=== PATIENT | male | born 1975 | race Two or more races ===

== ENCOUNTER 2019-12-18 12:45 | Emergency (ER) | payer BC, OTHER ==
[~2019-12-18] VITALS: Ht 162.6 cm; Wt 59.0 kg
[2019-12-18 13:35] LABS: Basophils # (auto) 0.1 10 ^3/uL (0-0.2); Basophils % (auto) 1.1 % (0.0-2.0); Eosinophils # (auto) 0.1 10 ^3/uL (0-0.8); Eosinophils % (auto) 1.1 % (0.0-7.0); Hematocrit 40.9 % (41.0-53.0); Hemoglobin 14.1 g/dL (13.5-17.5); Lymphocytes # (auto) 2.7 10 ^3/uL (0.4-5.4); Lymphocytes % (auto) 42.9 % (10.0-50.0); Mean Corpuscular Hemoglobin 30.5 pg (28.0-32.0); Mean Corpuscular Hgb Conc. 34.4 g/dL (32.0-36.0); Mean Corpuscular Volume 88.6 fL (80.0-100.0); Monocytes # (auto) 0.5 10 ^3/uL (0-1.3); Monocytes % (auto) 8.2 % (0.0-12.0); Neutrophils # (auto) 2.9 10 ^3/uL (1.6-8.6); Neutrophils % (auto) 46.7 % (37.0-80.0); Nucleated Red Blood Cells % 0.2 %; Platelet Count (auto) 311 10^3/uL (140-450); Red Blood Cells 4.62 10^6/uL (4.5-5.90); Red Cell Distribution Width 13.9 % (11.8-14.3); White Blood Cell 6.3 10^3/uL (4.4-10.8)
[2019-12-18 13:58] LABS: Albumin 3.8 g/dL (3.4-5.0); Anion Gap 5 (5-15); Blood Urea Nitrogen 17 mg/dL (7-18); Calcium 9.3 mg/dL (8.5-10.1); Carbon Dioxide 34 mmol/L (21-32); Chloride 100 mmol/L (98-107); Glucose 196 mg/dL (74-106); Magnesium 1.6 mg/dL (1.6-2.6); Potassium 3.3 mmol/L (3.5-5.1); Sodium 139 mmol/L (136-145)
[2019-12-18 14:00] VITALS: BP 126/80
[2019-12-18 14:03] LABS: Alanine Aminotransferase 72 U/L (16-61); Alkaline Phosphatase 76 U/L (45-117); Aspartate Aminotransferase 57 U/L (15-37); BUN/Creatinine Ratio 11.2; Bilirubin, Total 0.3 mg/dL (0.2-1.0); GFR African American 64 mL/min; GFR Non-African American 53 mL/min; Total Protein 7.4 g/dL (6.4-8.2)
[2019-12-18 14:26] LABS: Urine Bacteria NONE SEEN /hpf (None Seen); Urine Blood Negative /uL (Negative); Urine Specific Gravity 1.012 (1.001-1.035); Urine WBC <1 /hpf (0 - 3)
[2019-12-18 14:45] LABS: Alcohol, Urine < 3.0 mg/dL (0-10); Amphetamine Screen, Urine NEGATIVE (NEGATIVE); Barbiturate Scree,Urine NEGATIVE (NEGATIVE); Benzodiazephine Screen, Urine NEGATIVE (NEGATIVE); Cannabinoid Screen, Urine NEGATIVE (NEGATIVE); Cocaine Screen, Urine NEGATIVE (NEGATIVE); Opiate Scree,Urine NEGATIVE (NEGATIVE); Phencyclidine Screen, Urine NEGATIVE (NEGATIVE)
== END 2019-12-18 15:40 | disposition home or self-care (01) ==
LOC: EDBD 12:45 → ER 12:45
DX: R55 Syncope and collapse (principal)
CPT/HCPCS: 36415; 70450; 71045; 80053; 80307; 81001; 83735; 84484; 85025; 93005

== ENCOUNTER 2020-01-30 10:53 | Inpatient (IN) | payer BC ==
[~2020-01-30] VITALS: Ht 167.6 cm; Wt 67.7 kg
[2020-01-30] VITALS (25 sets, daily range): BP systolic 110–144; BP diastolic 73–90
[2020-01-30 11:45] LABS: Basophils # (auto) 0.1 10 ^3/uL (0-0.2); Basophils % (auto) 0.9 % (0.0-2.0); Eosinophils # (auto) 0 10 ^3/uL (0-0.8); Hematocrit 41.2 % (41.0-53.0); Lymphocytes # (auto) 1.9 10 ^3/uL (0.4-5.4); Lymphocytes % (auto) 13.1 % (10.0-50.0); Mean Corpuscular Hemoglobin 29.7 pg (28.0-32.0); Mean Corpuscular Hgb Conc. 33.9 g/dL (32.0-36.0); Mean Corpuscular Volume 87.6 fL (80.0-100.0); Monocytes # (auto) 1.1 10 ^3/uL (0-1.3); Monocytes % (auto) 7.9 % (0.0-12.0); Neutrophils # (auto) 11.2 10 ^3/uL (1.6-8.6); Neutrophils % (auto) 78.1 % (37.0-80.0); Platelet Count (auto) 294 10^3/uL (140-450); Red Blood Cells 4.71 10^6/uL (4.5-5.90); Red Cell Distribution Width 14.6 % (11.8-14.3); White Blood Cell 14.4 10^3/uL (4.4-10.8)
[2020-01-30 12:01] LABS: Albumin 3.5 g/dL (3.4-5.0); Calcium 8.4 mg/dL (8.5-10.1); Magnesium 1.7 mg/dL (1.6-2.6); Potassium 3.9 mmol/L (3.5-5.1)
[2020-01-30 12:09] LABS: BUN/Creatinine Ratio 20.4; Bilirubin, Total 0.7 mg/dL (0.2-1.0); CRP High Sensitivity 5.46 mg/dL (< 0.3); Total Protein 7.3 g/dL (6.4-8.2)
[2020-01-30] MEDS ORDERED: HEPARIN 1,000 UNITS/ml 1ML VIAL IV ONE (12:30)
[2020-01-30] MEDS ORDERED: LACTATED RINGER'S 1,000 ML IV ONE (12:30)
[2020-01-30] MEDS ORDERED: MORPHINE SULF INJ 2 MG/ML SYRINGE 1ML IV PRN ×3 (12:30→13:00)
[2020-01-30] MEDS ORDERED: NITROGLYCERIN 0.4 MG SL TAB SL PRN ×3 (12:30→13:00)
[2020-01-30] MEDS ORDERED: TEMAZEPAM 15 MG CAP PO PRN (13:00)
[2020-01-30] MEDS ORDERED: ALUM & MAG HYDROX-SIMETH LIQ(MAALOX) 30 ML PO PRN (13:00)
[2020-01-30] MEDS ORDERED: HYDROcodone-ACET 5/325MG TAB PO PRN (13:00)
[2020-01-30] MEDS ORDERED: ACETAMINOPHEN 325 MG TAB PO PRN (13:00)
[2020-01-30] MEDS ORDERED: ASPirin 325 MG TAB PO ONE (13:00)
[2020-01-30] MEDS ORDERED: MORPHINE SULFATE 4 MG/ML SYR/VIAL IV PRN (13:00)
[2020-01-30] MEDS ORDERED: ATORVASTATIN 20 MG TAB PO ONE (13:00)
[2020-01-30] MEDS ORDERED: ONDANSETRON HCL 4 MG/2 ML VIAL IV PRN ×2 (13:00)
[2020-01-30] MEDS ORDERED: METOPROLOL TARTRATE 25 MG TAB PO ONE ×2 (13:00→13:30)
[2020-01-30] MEDS ORDERED: DOCUSATE SOD 100 MG CAP PO PRN (13:00)
[2020-01-30] MEDS ORDERED: CALCIUM GLUC 4.65meq/50ml D5AE 50 ML IV ONE (13:15)
[2020-01-30] MEDS ORDERED: LISINOPRIL 5 MG TAB PO ONE (13:30)
[2020-01-30] MEDS ORDERED: ASPirin 81 mg TAB PO ONE (13:30)
[2020-01-30] MEDS ORDERED: ETOMIDATE (2MG/ML) 20ML VIAL IV ONE (13:36)
[2020-01-30] MEDS ORDERED: SUCCINYLCHOLINE CHLORIDE 20 MG/ML 10ML VIAL IV ONE (13:36)
[2020-01-30] MEDS ORDERED: NOREPINEPHRINE 8 MG/250ML KIT 0 ML IV ONE (13:54)
[2020-01-30] MEDS ORDERED: FUROSEMIDE 40 MG/4 ML VIAL ONE (13:57)
[2020-01-30] MEDS ORDERED: MIDAZOLAM DRIP 50 mg/50mL 0 ML IV ONE (14:00)
[2020-01-30] MEDS ORDERED: METF-929 PO (14:03)
[2020-01-30] MEDS ORDERED: ATOR10TA52 PO (14:03)
[2020-01-30] MEDS ORDERED: LISI-648 PO (14:03)
[2020-01-30] MEDS ORDERED: MELA3TAB27 PO (14:03)
[2020-01-30] MEDS: MIDAZOLAM DRIP 50 mg/50mL 50 ML IV SCH ×2 (14:06→23:34)
[2020-01-30] MEDS ORDERED: METO25TA93 PO (14:20)
[2020-01-30] MEDS ORDERED: GEMF600T7 PO (14:20)
[2020-01-30] MEDS ORDERED: TORS20TA19 PO (14:20)
[2020-01-30] MEDS ORDERED: OMEG100062 PO (14:20)
[2020-01-30] MEDS ORDERED: TEST1.62 TOP (14:23)
[2020-01-30] MEDS ORDERED: TORS10TA12 PO (14:23)
[2020-01-30] MEDS ORDERED: GLYB5TAB8 PO (14:24)
[2020-01-30] MEDS ORDERED: DILT-14 PO (14:24)
[2020-01-30] MEDS ORDERED: MULT-1018 PO (14:24)
[2020-01-30] MEDS ORDERED: MIDAZOLAM DRIP 50 mg/50mL 50 ML IV ONE (14:36)
[2020-01-30] MEDS ORDERED: PROPOFOL 100 ML IV ONE (14:37)
[2020-01-30] MEDS ORDERED: PROPOFOL 100 ML IV SCH (14:45)
[2020-01-30] MEDS ORDERED: levoFLOXacin 500MG 100 ML IV ONE (15:00)
[2020-01-30] MEDS ORDERED: AMIODARONE 450mg/250ml AE 250 ML IV SCH ×2 (15:00→21:00)
[2020-01-30] MEDS ORDERED: METOPROLOL SUCCINATE XL 50 MG TAB PO ONE (15:45)
[2020-01-30] MEDS ORDERED: LIDOCAINE 2%HCL (LOCAL ANESTH.) INJ 20ML MDV ONE (15:58)
[2020-01-30] MEDS ORDERED: IOHEXOL 350 MG/ML 100ML IJ ONE ×2 (15:58→16:06)
[2020-01-30] MEDS ORDERED: FOLIC ACID 1 MG TAB PO ONE (16:00)
[2020-01-30] MEDS ORDERED: VANCOMYCIN PER PHARMACY 0 MG IV SCH (16:00)
[2020-01-30] MEDS ORDERED: MULTIPLE VITAMINS W/ MINERALS TAB PO ONE (16:00)
[2020-01-30] MEDS ORDERED: THIAMINE HCL 100 MG TAB PO ONE (16:00)
[2020-01-30] MEDS ORDERED: PIPERACILLIN-TAZOB 2.25GM 50 ML IV ONE (16:00)
[2020-01-30] MEDS ORDERED: DEXTROSE (50%) 50ML SYRG IV PRN ×2 (16:00→16:30)
[2020-01-30] MEDS ORDERED: ANGIOMAX 250 MG VIAL IV ONE (16:18)
[2020-01-30] MEDS ORDERED: SODIUM CHL 0.9% 50 ML ONE (16:18)
[2020-01-30] MEDS ORDERED: ACCU-CHEK COMFORT CURVE STRIP VI SCH (17:00)
[2020-01-30] MEDS ORDERED: InsuLIN REG 1unit/0.01ml Soln (100units/ml) SC SCH ×2 (17:00→22:00)
[2020-01-30] MEDS ORDERED: HEPARIN SODIUM (PORCINE) 5000 UNITS/ML 1ML VIAL ONE (17:01)
[2020-01-30] MEDS ORDERED: HEPARIN DRIP/D5W 100UNITS/ML 250 ML IV ONE (17:07)
--- NOTE | 2020-01-30 17:35 | NUR ---
pt transferred directly to APRIL on monitor with RT at bedside IABP in place; lynn catheter remains in place draining to gravity.
--- NOTE | 2020-01-30 17:44 | NUR ---
Amiodarone D/C'd as ordered
--- NOTE | 2020-01-30 17:45 | NUR ---
PT TRANSPORTED TO APRIL BED 263, BY RNS AND RT FERNANDO WITHOUT EVENT OR INCIDENT. ONCE IN ROOM PLACED PT BACK ON VENT V21, ON PREVIOUS ORDERED SETTINGS. VENT CONNECTED TO RED OUTLET AND O2 SOURCE. ALARMS ARE SER AND AUDIBLE. AMBU BAG AND MASK AT BEDSIDE.
--- NOTE | 2020-01-30 17:50 | NUR ---
Dr Mckeon at bedside orders obtained and carried out. Levophed drip increased to 20mcg/min
[2020-01-30 17:56] LABS: INR 0.99 (0.9-1.15); Partial Thromboplastin Time 23.7 sec (23.0-31.2)
--- NOTE | 2020-01-30 18:08 | NUR ---
Levophed drip decreased to 15mcg/min Augmented pressure at >120 as ordered by
--- NOTE | 2020-01-30 18:19 | NUR ---
RECEIVED PT ON VENT V21, VENT CHECK DONE IN PTS ROOM DOOR DUE TO COVID R/O PRECAUTIONS VENT CONNECTED TO RED OUTLET AND O2 SOURCE ALARMS ARE SET AND AUDIBLE. AMBU BAG AND MASK AT BEDSIDE. ASKED SKILLS AUDITOR RNS ABOUT SEDATION BE INCREASED DUE TO RR IN 30S HR IN 100S. PER SKILLS AUDITOR RNS, PT IS SENSITIVE TO SEDATION BP DROPS AND HR DECREASES. WILL CONTINUE TO MONITOR.
--- NOTE | 2020-01-30 18:31 | NUR ---
call from Lizette at [facility] updated on pt's status. required forms and docs faxed to [phone]
[2020-01-30] MEDS ORDERED: VANCOMYCIN 1GM/250ML 250 ML IV ONE (19:00)
[2020-01-30] MEDS ORDERED: NOREPINEPHRINE 8 MG/250ML KIT 250 ML IV SCH (19:00)
--- NOTE | 2020-01-30 19:11 | NUR ---
[id number] 01/30/20 - Faxed to [facility] transfer center at [phone], and [facility] transfer center at [phone] face sheet, Order to transfer to [facility] for Aortic Valve Surgery; cardiogenic shock, labs, meds, imaging. Also contacted [facility] at [phone] patient on "will call" status. Transfer pending review and bed availability. Inform nurse assigned to patient of all information stated above.
--- NOTE | 2020-01-30 19:13 | NUR ---
call from Kat (Transfer RN), Eric Marie updated on pt status.
[2020-01-30] MEDS: ACCU-CHEK COMFORT CURVE STRIP VI SCH ×2 (19:15→23:38)
[2020-01-30] MEDS: InsuLIN REG 1unit/0.01ml Soln (100units/ml) SC SCH ×2 (19:19→23:40)
--- NOTE | 2020-01-30 19:41 | NUR ---
report given to primary RN, Kyle
--- NOTE | 2020-01-30 19:45 | NUR ---
REPORT RECEIVED REPORT FROM VACUUM EVAPORATION OPERATOR RN. PATIENT IS SEDATED WITH DIPRIVAN 50 MCG/KG/MIN, VERSED 15 MG/HR. PATIENT IS ON LEVOPHED 15 MCG/MIN AND HEPARIN 1000 UNITS/HR. PATIENT IS ON LT.GROIN IABP 1:1 . LT.FEMORAL PA CATHETER ( 4 LUMEN)IN PLACE. PER ICU CLAM [facility], HOSPITAL DOESN'T HAVE MANUAL CARDIAC OUT PUT SET UP SUPPLIES. NO CARDIAC OUT PUT DONE.
--- NOTE | 2020-01-30 19:50 | NUR ---
TRANSFER ACKNOWLEDGEMENT TELEPHONIC CONSENT FOR [facility] TRANSFER RECEIVED FROM PATIENT'S GIA LIRIANO. DANIE CHAVEZ WITNESSED.
--- NOTE | 2020-01-30 20:13 | NUR ---
[facility] RECEIVED PHONE CALL FROM FARHAN NICHOLSON RN FROM [facility]. PATIENT'S INFORMATIONS GIVEN.
--- NOTE | 2020-01-30 20:30 | NUR ---
AT BEDSIDE IN FULL PPE DUE TO COVID R/O PRECAUTIONS. FIO2 TITRATED TO 70% BS ARE FINE COURSE SXD VIA ETT FOR SMALL THICK JAQUEZ. RN JOPHY AT BEDSIDE AND COMMUNICATED ON O2 CHANGE.
[2020-01-30 20:34] LABS: Cholesterol 236 mg/dL (< 200); HDL Cholesterol 51 mg/dL (40-59); Triglycerides 495 mg/dL (< 150)
[2020-01-30] MEDS ORDERED: HEPARIN DRIP/D5W 100UNITS/ML 250 ML IV SCH (20:58)
--- NOTE | 2020-01-30 21:00 | NUR ---
HEPARIN DECREASED TO 800 UNITS/HR PATIENT IS RECEIVING HEPARIN 1000UNITS/HR NOW. PER PHARMACIST THAT SHOULD DECREASED TO 800 UNITS/HR. ORDER CARRIED OUT.
--- NOTE | 2020-01-30 21:45 | NUR ---
[facility] ACCEPTING DOCTOR THELMA SAMAYOA AND PATIENT IS GOING TO [phone]. PHONE NUMBER [phone]
--- NOTE | 2020-01-30 21:55 | NUR ---
DR.PONCE PERKINS NOTIFIED PATIENT'S TRANSFER TO [facility].
[2020-01-30] MEDS ORDERED: ATORVASTATIN 20 MG TAB PO SCH (22:00)
[2020-01-30] MEDS ORDERED: METOPROLOL TARTRATE 25 MG TAB PO SCH (22:00)
--- NOTE | 2020-01-30 22:08 | NUR ---
Respiratory note: ROUTINE VENT CHECK DONE AT THIS TIME. FIO2 TITRATED TO 60% RN JOPHY AT BEDSIDE AND COMMUNICATED ON O2 CHANGE. WILL CONTINUE TO MONITOR.
--- NOTE | 2020-01-30 22:30 | NUR ---
CALLED [facility] FOR TRANSPORTATION JONATHON CHAVEZ CALLED [facility] FOR TRANSPORTATION AND INFORMATIONS GIVEN. ETA [phone]
[2020-01-30] MEDS ORDERED: SODIUM BICARBONATE 8.4% INJ 50ML SYRINGE IV ONE (22:40)
[2020-01-30] MEDS ORDERED: EPINEPHrine HCL 1 MG/10 ML SYRG IV ONE (22:40)
[2020-01-30] MEDS ORDERED: CALCIUM CHLOR(10%) 100MG/ML 10ML SYRINGE IV ONE (22:40)
[2020-01-31] VITALS: BP_SYST 128; BP_SYST 141; BP_DIAS 82; BP_DIAS 85
[2020-01-31] MEDS ORDERED: PIPERACILLIN-TAZOB 3.375GM 100 ML IV SCH
--- NOTE | 2020-01-31 00:30 | NUR ---
TRANSPORT TEAM PATIENT IS TAKEN TO [facility] BY [facility]. MCCONNELL YELLOW COLOR CHAIN X 1 AND SILVER COLOR RING X 1 SENT WITH PATIENT. PATIENT'S AWARE ABOUT BELONGINGS. Addendum: 01/31/20 at 0751 by Fadi Tinsley RN RECEIVING FACILITY [facility] [address] [id number]
[2020-01-31] MEDS ORDERED: THIAMINE HCL 100 MG TAB PO SCH (10:00)
[2020-01-31] MEDS ORDERED: DOCUSATE SOD 100 MG CAP PO SCH (10:00)
[2020-01-31] MEDS ORDERED: FOLIC ACID 1 MG TAB PO SCH (10:00)
[2020-01-31] MEDS ORDERED: GEMFIBROZIL 600 MG TAB PO SCH (10:00)
[2020-01-31] MEDS ORDERED: dilTIAZem 120MG ER CAP PO SCH (10:00)
[2020-01-31] MEDS ORDERED: LISINOPRIL 5 MG TAB PO SCH (10:00)
[2020-01-31] MEDS ORDERED: MULTIPLE VITAMINS W/ MINERALS TAB PO SCH (10:00)
[2020-01-31] MEDS ORDERED: ASPirin 81 mg TAB PO SCH (10:00)
[2020-01-31] MEDS ORDERED: METOPROLOL SUCCINATE XL 50 MG TAB PO SCH (10:00)
== END 2020-01-31 07:24 | disposition short-term general hospital (02) | DRG 280 ==
LOC: EDSEX 10:53 → ER 10:53 → EDBD 10:53 → TELE 10:54 → DOU IN ICU 16:47 → ICU CENTRL 01-31 03:22
PROVIDERS: ADMIT Hospitalist; ATTEND Hospitalist
PROC: 0BH17EZ Insertion of Endotracheal Airway into Trachea, Via Natural or Artificial Opening (ICD-10-PCS; principal; 2020-01-30)
PROC: 5A1935Z Respiratory Ventilation, Less than 24 Consecutive Hours (ICD-10-PCS; 2020-01-30)
PROC: 02HV33Z Insertion of Infusion Device into Superior Vena Cava, Percutaneous Approach (ICD-10-PCS; 2020-01-30)
PROC: 4A023N8 Measurement of Cardiac Sampling and Pressure, Bilateral, Percutaneous Approach (ICD-10-PCS; 2020-01-30)
PROC: B2161ZZ Fluoroscopy of Right and Left Heart using Low Osmolar Contrast (ICD-10-PCS; 2020-01-30)
PROC: B2111ZZ Fluoroscopy of Multiple Coronary Arteries using Low Osmolar Contrast (ICD-10-PCS; 2020-01-30)
DX: I21.4 Non-ST elevation (NSTEMI) myocardial infarction (principal); I46.9 Cardiac arrest, cause unspecified; I50.23 Acute on chronic systolic (congestive) heart failure; I13.0 Hypertensive heart and chronic kidney disease with heart failure and stage 1 through stage 4 chronic kidney disease, or unspecified chronic kidney disease; I47.1 Supraventricular tachycardia; N17.9 Acute kidney failure, unspecified; Q23.1 Congenital insufficiency of aortic valve; I25.10 Atherosclerotic heart disease of native coronary artery without angina pectoris; I25.5 Ischemic cardiomyopathy; N18.9 Chronic kidney disease, unspecified; Z79.84 Long term (current) use of oral hypoglycemic drugs; Z85.6 Personal history of leukemia; Z95.2 Presence of prosthetic heart valve; E78.5 Hyperlipidemia, unspecified; E11.65 Type 2 diabetes mellitus with hyperglycemia; E11.22 Type 2 diabetes mellitus with diabetic chronic kidney disease; D72.829 Elevated white blood cell count, unspecified; Z20.828 Contact with and (suspected) exposure to other viral communicable diseases
CPT/HCPCS: 36415; 36600; 71045; 80053; 80061; 82728; 82805; 82962; 83036; 83615; 83735; 83880; 84484; 85025; 85610; 85730; 86141; 86850; 86900; 86901; 87040; 87070; 87081; 87205; 87426; 93005; 93306; 99152; 99291; C1751; G0378; J0330; J0610; J1815; J1956; J2250; J2405; J2543; J2704

== ENCOUNTER 2021-07-30 14:06 | Inpatient (IN) | payer BC ==
[~2021-07-30] VITALS: Ht 167.6 cm; Wt 62.5 kg
[~2021-07-30 14:06] MED LIST: ATOR10TA52 PO; DILT-14 PO; GEMF-19 PO; GLYB5TAB8 PO; LISI-716 PO; MELA3TAB27 PO; METF-929 PO; METO25TA93 PO; MULT-1018 PO; OMEG100062 PO; TEST1.62 TOP; TORS10TA12 PO
[2021-07-30] MEDS ORDERED: IBUPROFEN 600 MG TAB PO ONE (14:15)
[2021-07-30] MEDS ORDERED: cefTRIAXone 1GM/50ML D5W 50 ML IV ONE (14:30)
[2021-07-30] MEDS ORDERED: AZITHROMYCIN 500MG/ 250ML 250 ML IV ONE (14:30)
[2021-07-30] MEDS ORDERED: SODIUM CHLORIDE 0.9% 500 ML IV ONE (14:30)
[2021-07-30] MEDS ORDERED: methylPREDNISolone SOD SUCC 125 MG/2 ML VL IV ONE (14:30)
[2021-07-30 15:40] LABS: Basophils # (auto) 0 10 ^3/uL (0-0.2); Basophils % (auto) 0.4 % (0.0-2.0); Eosinophils # (auto) 0 10 ^3/uL (0-0.8); Hematocrit 45.1 % (41.0-53.0); Hemoglobin 14.7 g/dL (13.5-17.5); Lymphocytes # (auto) 0.4 10 ^3/uL (0.4-5.4); Lymphocytes % (auto) 4.8 % (10.0-50.0); Mean Corpuscular Hemoglobin 27.8 pg (28.0-32.0); Mean Corpuscular Hgb Conc. 32.7 g/dL (32.0-36.0); Mean Corpuscular Volume 85.2 fL (80.0-100.0); Monocytes # (auto) 0.3 10 ^3/uL (0-1.3); Neutrophils # (auto) 8.1 10 ^3/uL (1.6-8.6); Neutrophils % (auto) 91.8 % (37.0-80.0); Nucleated Red Blood Cells % 0.1 %; Red Cell Distribution Width 18.5 % (11.8-14.3); White Blood Cell 8.8 10^3/uL (4.4-10.8)
[2021-07-30 15:53] LABS: Albumin 2.7 g/dL (3.4-5.0); BUN/Creatinine Ratio 20.5; Calcium 8.6 mg/dL (8.5-10.1); Potassium 4.8 mmol/L (3.5-5.1)
[2021-07-30 16:02] LABS: Bilirubin, Total 0.7 mg/dL (0.2-1.0); Total Protein 7.6 g/dL (6.4-8.2)
[2021-07-30 16:16] LABS: Urine Amorphous Crystal FEW /hpf (None Seen); Urine Bacteria MOD /hpf (None Seen); Urine Blood 1+ /uL (Negative); Urine Mucus FEW (None Seen); Urine Specific Gravity 1.039 (1.001-1.035); Urine WBC 2 /hpf (0 - 3)
[2021-07-30] MEDS ORDERED: MORPHINE SULFATE INJECTION 2 MG/ML SYRG IV PRN ×2 (16:30→18:15)
[2021-07-30] MEDS ORDERED: METOPROLOL TARTRATE 1MG/1ML-5ML VIAL IV PRN (16:30)
[2021-07-30] MEDS ORDERED: LABETALOL HCL 5 MG/ML 4ML SYRINGE IV PRN (16:30)
[2021-07-30] MEDS ORDERED: NITROGLYCERIN 0.4 MG SL TAB SL PRN (16:30)
[2021-07-30] MEDS ORDERED: ONDANSETRON HCL 4 MG/2 ML VIAL ONE (17:54)
[2021-07-30] MEDS ORDERED: ONDANSETRON HCL 4 MG/2 ML VIAL IV PRN ×2 (18:00→18:15)
[2021-07-30] MEDS ORDERED: LORazepam 0.5 MG TAB PO PRN (18:15)
[2021-07-30] MEDS ORDERED: DEXTROSE (50%) 50ML SYRG IV PRN (18:15)
[2021-07-30] MEDS ORDERED: DOCUSATE SOD 100 MG CAP PO PRN (18:15)
[2021-07-30] MEDS ORDERED: VANCOMYCIN PER PHARMACY 0 MG IV SCH (18:15)
[2021-07-30] MEDS ORDERED: LORazepam 2MG/ML-1ML VIAL IV PRN (18:15)
[2021-07-30] MEDS ORDERED: GENTAMICIN PER PHARMACY 0 ML IV SCH (18:15)
[2021-07-30] MEDS ORDERED: MORPHINE SULFATE 4 MG/ML SYR/VIAL IV PRN (18:15)
[2021-07-30] MEDS ORDERED: SODIUM CHLORIDE 0.9% 1,000 ML IV SCH (18:45)
[2021-07-30 20:48] VITALS: BP 99/70
[2021-07-30] MEDS ORDERED: GENTAMICIN SULFATE IV ONE (21:00)
[2021-07-30] MEDS ORDERED: D5W 5% IV ONE (21:00)
[2021-07-30 21:11] LABS: Partial Thromboplastin Time 63.2 sec (23.6-33.0)
[2021-07-30 21:15] LABS: INR 5.26 (0.9-1.15)
[2021-07-30] MEDS: ISOSORBIDE MONONITRATE 20 MG TAB PO SCH (21:47)
[2021-07-30] MEDS: InsuLIN REG 1unit/0.01ml Soln (100units/ml) SC SCH (21:48)
[2021-07-30] MEDS: ACCU-CHEK COMFORT CURVE STRIP VI SCH (21:48)
[2021-07-30] MEDS ORDERED: ATORVASTATIN 20 MG TAB PO SCH (22:00)
[2021-07-30] MEDS: PROMETHAZINE W/CODEINE 5 ML ORAL SYRUP PO PRN (22:25)
[2021-07-30] MEDS: HYDROcodone-ACET 5/325MG TAB PO PRN (22:25)
[2021-07-30] MEDS ORDERED: VANCOMYCIN 1GM/250ML 250 ML IV SCH (23:00)
[2021-07-31 01:44] LABS: Urine Bacteria NONE SEEN /hpf (None Seen); Urine Blood 1+ /uL (Negative); Urine Mucus FEW (None Seen); Urine Specific Gravity 1.027 (1.001-1.035); Urine WBC 4 /hpf (0 - 3)
[2021-07-31 01:56] LABS: Alcohol, Urine < 3.0 mg/dL (0-10); Amphetamine Screen, Urine NEGATIVE (NEGATIVE); Barbiturate Scree,Urine NEGATIVE (NEGATIVE); Benzodiazephine Screen, Urine NEGATIVE (NEGATIVE); Cannabinoid Screen, Urine NEGATIVE (NEGATIVE); Cocaine Screen, Urine NEGATIVE (NEGATIVE); Phencyclidine Screen, Urine NEGATIVE (NEGATIVE)
[2021-07-31 02:04] LABS: Opiate Scree,Urine POSITIVE (NEGATIVE)
[2021-07-31 02:44] LABS: Protein, Urine 1138.9 mg/dL (0.0-11.9)
[2021-07-31] MEDS: ACCU-CHEK COMFORT CURVE STRIP VI SCH ×4 (05:58→22:08)
[2021-07-31 06:00] LABS: Basophils # (auto) 0 10 ^3/uL (0-0.2); Eosinophils # (auto) 0 10 ^3/uL (0-0.8); Hemoglobin 14.2 g/dL (13.5-17.5); Lymphocytes # (auto) 0.6 10 ^3/uL (0.4-5.4); Lymphocytes % (auto) 6.3 % (10.0-50.0); Mean Corpuscular Hemoglobin 28.6 pg (28.0-32.0); Mean Corpuscular Volume 86.6 fL (80.0-100.0); Monocytes # (auto) 0.3 10 ^3/uL (0-1.3); Neutrophils % (auto) 90.7 % (37.0-80.0); Nucleated Red Blood Cells % 0.1 %; Red Blood Cells 4.97 10^6/uL (4.5-5.90); Red Cell Distribution Width 18.8 % (11.8-14.3); White Blood Cell 8.8 10^3/uL (4.4-10.8)
[2021-07-31] MEDS ORDERED: FUROSEMIDE 20 MG/2 ML VIAL IV SCH (06:00)
[2021-07-31] MEDS: InsuLIN REG 1unit/0.01ml Soln (100units/ml) SC SCH ×4 (06:09→21:52)
[2021-07-31 06:17] LABS: Potassium 5.5 mmol/L (3.5-5.1)
[2021-07-31 06:29] LABS: INR 3.94 (0.9-1.15); Partial Thromboplastin Time 66.7 sec (23.6-33.0)
[2021-07-31 06:46] LABS: Albumin 2.3 g/dL (3.4-5.0); BUN/Creatinine Ratio 23.5; Bilirubin, Total 0.4 mg/dL (0.2-1.0); CRP High Sensitivity 17.1 mg/dL (< 0.3); Magnesium 2.1 mg/dL (1.6-2.6); Phosphorus 3.9 mg/dL (2.5-4.90); Total Protein 7.2 g/dL (6.4-8.2); Uric Acid 7.2 mg/dL (3.5-7.2)
[2021-07-31 08:00] VITALS: BP 101/61
[2021-07-31 09:00] VITALS: BP 101/61
[2021-07-31] MEDS: AZITHROMYCIN 500MG/ 250ML 250 ML IV SCH (09:18)
[2021-07-31] MEDS: FAMOTIDINE (10MG/ML) 2ML VL IV SCH (09:18)
[2021-07-31] MEDS: dilTIAZem 120MG ER CAP PO SCH (09:19)
[2021-07-31] MEDS: ISOSORBIDE MONONITRATE 20 MG TAB PO SCH (09:19)
[2021-07-31] MEDS ORDERED: GEMFIBROZIL 600 MG TAB PO SCH (10:00)
[2021-07-31] MEDS ORDERED: INSULIN LANTUS (GLARGINE) 1 /0.01ml (100units/ml) SC ONE (10:15)
[2021-07-31 10:45] VITALS: BP 101/61
[2021-07-31 11:07] LABS: Creatinine, Urine 142 mg/dL (30.0-125.0); Sodium Urine 17 mmol/L (40-220)
[2021-07-31] MEDS: CEFTRIAXONE SODIUM 2 GM in D5W 5% 50 ML IV SCH (12:02)
[2021-07-31 12:16] LABS: INR 3.99 (0.9-1.15)
[2021-07-31] MEDS: HYDROcodone-ACET 5/325MG TAB PO PRN ×2 (12:28→21:54)
[2021-07-31] MEDS ORDERED: SODIUM BICARBONATE 8.4% INJ 50ML SYRINGE IV ONE (12:45)
[2021-07-31] MEDS ORDERED: InsuLIN REG 1unit/0.01ml Soln (100units/ml) IV ONE (12:45)
[2021-07-31 13:00] VITALS: BP 104/69
[2021-07-31] MEDS ORDERED: SODIUM ZIRCONIUM CYCL 10 GM PAK PO ONE (13:00)
[2021-07-31] MEDS: ALBUTEROL SULF 2.5 MG/0.5ML(0.5%) NEB SOLN NEB SCH (13:05)
[2021-07-31 17:00] VITALS: BP 131/82
[2021-07-31] MEDS: PROMETHAZINE W/CODEINE 5 ML ORAL SYRUP PO PRN (18:36)
[2021-07-31 22:00] VITALS: BP 121/79
[2021-07-31] MEDS ORDERED: SODIUM ZIRCONIUM CYCL 10 GM PAK PO SCH (22:00)
[2021-07-31] MEDS: INSULIN LANTUS (GLARGINE) 1 /0.01ml (100units/ml) SC SCH (22:07)
[2021-08-01 05:00] VITALS: BP 105/73
[2021-08-01] MEDS: PROMETHAZINE W/CODEINE 5 ML ORAL SYRUP PO PRN ×2 (05:34→19:58)
[2021-08-01 06:21] LABS: BUN/Creatinine Ratio 34.8; Calcium 7.9 mg/dL (8.5-10.1); Magnesium 2.1 mg/dL (1.6-2.6); Phosphorus 4.6 mg/dL (2.5-4.90); Potassium 4.6 mmol/L (3.5-5.1)
[2021-08-01 06:23] LABS: Basophils # (auto) 0 10 ^3/uL (0-0.2); Basophils % (auto) 0.1 % (0.0-2.0); Eosinophils # (auto) 0 10 ^3/uL (0-0.8); Hematocrit 39.1 % (41.0-53.0); Lymphocytes # (auto) 0.9 10 ^3/uL (0.4-5.4); Lymphocytes % (auto) 9.1 % (10.0-50.0); Mean Corpuscular Hemoglobin 28.6 pg (28.0-32.0); Mean Corpuscular Hgb Conc. 33.3 g/dL (32.0-36.0); Mean Corpuscular Volume 85.7 fL (80.0-100.0); Monocytes # (auto) 0.6 10 ^3/uL (0-1.3); Monocytes % (auto) 6.8 % (0.0-12.0); Nucleated Red Blood Cells % 0.1 %; Partial Thromboplastin Time 45.8 sec (23.6-33.0); Red Blood Cells 4.57 10^6/uL (4.5-5.90); Red Cell Distribution Width 18.7 % (11.8-14.3); White Blood Cell 9.5 10^3/uL (4.4-10.8)
[2021-08-01 06:28] LABS: INR 5.83 (0.9-1.15)
[2021-08-01] MEDS: ACCU-CHEK COMFORT CURVE STRIP VI SCH ×4 (06:29→22:11)
[2021-08-01] MEDS: InsuLIN REG 1unit/0.01ml Soln (100units/ml) SC SCH ×4 (06:30→22:10)
[2021-08-01] MEDS: ALBUTEROL SULF 2.5 MG/0.5ML(0.5%) NEB SOLN NEB SCH ×3 (06:49→17:55)
[2021-08-01 09:00] VITALS: BP 115/71
[2021-08-01] MEDS: CEFTRIAXONE SODIUM 2 GM in D5W 5% 50 ML IV SCH (09:36)
[2021-08-01] MEDS: FAMOTIDINE (10MG/ML) 2ML VL IV SCH (09:36)
[2021-08-01] MEDS: dilTIAZem 120MG ER CAP PO SCH (09:38)
[2021-08-01] MEDS: INSULIN LANTUS (GLARGINE) 1 /0.01ml (100units/ml) SC SCH ×2 (09:42→22:11)
[2021-08-01] MEDS: HYDROcodone-ACET 5/325MG TAB PO PRN ×2 (09:51→15:39)
[2021-08-01] MEDS: AZITHROMYCIN 500MG/ 250ML 250 ML IV SCH (11:06)
[2021-08-01] MEDS ORDERED: THROAT LOZENGES(CEPASTAT) MT PRN (11:15)
[2021-08-01 13:00] VITALS: BP 108/72
[2021-08-01 13:08] LABS: Hepatitis A Ab IgM Negative; Hepatitis B Core IgM Negative; Hepatitis C Antibody Negative (Negative)
[2021-08-01] MEDS ORDERED: FUROSEMIDE 20 MG/2 ML VIAL IV ONE (16:30)
[2021-08-01 17:00] VITALS: BP 104/68
[2021-08-01] MEDS: IPRATROPIUM BROM 0.5 MG/2.5ML INH SOL NEB PRN (17:56)
[2021-08-01] MEDS ORDERED: FUROSEMIDE 20 MG TAB PO SCH (18:00)
[2021-08-01] MEDS ORDERED: SODIUM BICARBONATE 650 MG TAB PO ONE (18:15)
[2021-08-01 22:00] VITALS: BP 99/55
[2021-08-01] MEDS ORDERED: METOPROLOL TARTRATE 25 MG TAB PO SCH (22:00)
[2021-08-01] MEDS: SODIUM BICARBONATE 650 MG TAB PO SCH (22:05)
[2021-08-01] MEDS: ATORVASTATIN 20 MG TAB PO SCH (22:06)
[2021-08-02] MEDS: ALBUTEROL SULF 2.5 MG/0.5ML(0.5%) NEB SOLN NEB SCH ×5 (00:42→23:54)
[2021-08-02] MEDS: PROMETHAZINE W/CODEINE 5 ML ORAL SYRUP PO PRN ×2 (00:45→08:36)
[2021-08-02] MEDS: HYDROcodone-ACET 5/325MG TAB PO PRN ×2 (03:43→16:47)
[2021-08-02 05:00] VITALS: BP 121/80
[2021-08-02] MEDS: IPRATROPIUM BROM 0.5 MG/2.5ML INH SOL NEB PRN ×3 (06:15→23:54)
[2021-08-02] MEDS: SODIUM BICARBONATE 650 MG TAB PO SCH ×4 (06:21→22:17)
[2021-08-02 06:22] LABS: Basophils # (auto) 0 10 ^3/uL (0-0.2); Basophils % (auto) 0.2 % (0.0-2.0); Eosinophils # (auto) 0 10 ^3/uL (0-0.8); Hematocrit 36.3 % (41.0-53.0); Hemoglobin 12.2 g/dL (13.5-17.5); Lymphocytes # (auto) 0.9 10 ^3/uL (0.4-5.4); Lymphocytes % (auto) 10.4 % (10.0-50.0); Mean Corpuscular Hemoglobin 28.2 pg (28.0-32.0); Mean Corpuscular Hgb Conc. 33.8 g/dL (32.0-36.0); Mean Corpuscular Volume 83.5 fL (80.0-100.0); Monocytes # (auto) 0.6 10 ^3/uL (0-1.3); Monocytes % (auto) 7.8 % (0.0-12.0); Neutrophils # (auto) 6.8 10 ^3/uL (1.6-8.6); Neutrophils % (auto) 81.6 % (37.0-80.0); Nucleated Red Blood Cells % 0.2 %; Red Blood Cells 4.34 10^6/uL (4.5-5.90); Red Cell Distribution Width 18.2 % (11.8-14.3); White Blood Cell 8.3 10^3/uL (4.4-10.8)
[2021-08-02 06:34] LABS: Calcium 8.5 mg/dL (8.5-10.1); Potassium 3.7 mmol/L (3.5-5.1)
[2021-08-02 06:36] LABS: BUN/Creatinine Ratio 38.2
[2021-08-02 06:40] LABS: INR 2.94 (0.9-1.15); Partial Thromboplastin Time 39.3 sec (23.6-33.0)
[2021-08-02] MEDS: InsuLIN REG 1unit/0.01ml Soln (100units/ml) SC SCH ×4 (06:57→22:00)
[2021-08-02] MEDS: ACCU-CHEK COMFORT CURVE STRIP VI SCH ×4 (06:57→22:18)
[2021-08-02 07:06] LABS: Immunoglobulin G, Serum 895 mg/dL (603-1613)
[2021-08-02 08:00] VITALS: BP 116/68
[2021-08-02] MEDS: CEFTRIAXONE SODIUM 2 GM in D5W 5% 50 ML IV SCH (08:35)
[2021-08-02] MEDS: PANTOPRAZOLE 40 MG/10 ML VIAL INJ IV SCH (08:36)
[2021-08-02] MEDS: FUROSEMIDE 20 MG/2 ML VIAL IV SCH (08:36)
[2021-08-02] MEDS: INSULIN LANTUS (GLARGINE) 1 /0.01ml (100units/ml) SC SCH ×2 (08:51→22:00)
[2021-08-02] MEDS ORDERED: BACLOFEN 10 MG TAB PO ONE (10:00)
[2021-08-02] MEDS: AZITHROMYCIN 500MG/ 250ML 250 ML IV SCH (11:02)
[2021-08-02 12:00] VITALS: BP 109/67
[2021-08-02] MEDS: CARVEDILOL 3.125 MG TAB PO SCH ×2 (12:03→22:17)
[2021-08-02] MEDS ORDERED: ERGOCALCIFEROL 50,000 UNIT(1.25MG) CAP PO SCH (13:45)
[2021-08-02 16:59] VITALS: BP 111/72
[2021-08-02] MEDS ORDERED: WARFARIN SODIUM 1 MG TAB PO ONE (17:00)
[2021-08-02 22:00] VITALS: BP 122/72
[2021-08-02] MEDS: ATORVASTATIN 20 MG TAB PO SCH (22:17)
[2021-08-03 05:00] VITALS: BP 115/77
[2021-08-03] MEDS: ALBUTEROL SULF 2.5 MG/0.5ML(0.5%) NEB SOLN NEB SCH ×2 (05:54→12:06)
[2021-08-03] MEDS: IPRATROPIUM BROM 0.5 MG/2.5ML INH SOL NEB PRN ×2 (05:54→12:06)
[2021-08-03] MEDS: SODIUM BICARBONATE 650 MG TAB PO SCH ×2 (06:05→13:01)
[2021-08-03] MEDS: ACCU-CHEK COMFORT CURVE STRIP VI SCH ×2 (06:38→13:01)
[2021-08-03] MEDS: InsuLIN REG 1unit/0.01ml Soln (100units/ml) SC SCH ×2 (06:38→13:01)
[2021-08-03 07:14] LABS: Basophils # (auto) 0 10 ^3/uL (0-0.2); Basophils % (auto) 0.5 % (0.0-2.0); Eosinophils # (auto) 0 10 ^3/uL (0-0.8); Eosinophils % (auto) 0.6 % (0.0-7.0); Hematocrit 38.2 % (41.0-53.0); Hemoglobin 12.8 g/dL (13.5-17.5); Lymphocytes # (auto) 1.2 10 ^3/uL (0.4-5.4); Lymphocytes % (auto) 21.5 % (10.0-50.0); Mean Corpuscular Hemoglobin 27.9 pg (28.0-32.0); Mean Corpuscular Hgb Conc. 33.4 g/dL (32.0-36.0); Mean Corpuscular Volume 83.5 fL (80.0-100.0); Monocytes # (auto) 0.5 10 ^3/uL (0-1.3); Monocytes % (auto) 8.5 % (0.0-12.0); Neutrophils # (auto) 3.7 10 ^3/uL (1.6-8.6); Neutrophils % (auto) 68.9 % (37.0-80.0); Nucleated Red Blood Cells % 0.3 %; Red Blood Cells 4.58 10^6/uL (4.5-5.90); Red Cell Distribution Width 18.4 % (11.8-14.3); White Blood Cell 5.4 10^3/uL (4.4-10.8)
[2021-08-03 07:31] LABS: INR 1.54 (0.9-1.15); Partial Thromboplastin Time 32.8 sec (23.6-33.0); Potassium 3.7 mmol/L (3.5-5.1)
[2021-08-03 07:42] LABS: BUN/Creatinine Ratio 36.8; Calcium 8.3 mg/dL (8.5-10.1)
[2021-08-03 09:00] VITALS: BP 124/67
[2021-08-03] MEDS: INSULIN LANTUS (GLARGINE) 1 /0.01ml (100units/ml) SC SCH (09:07)
[2021-08-03] MEDS: PANTOPRAZOLE 40 MG/10 ML VIAL INJ IV SCH (09:35)
[2021-08-03] MEDS: FUROSEMIDE 20 MG/2 ML VIAL IV SCH (09:35)
[2021-08-03] MEDS: CEFTRIAXONE SODIUM 2 GM in D5W 5% 50 ML IV SCH (09:35)
[2021-08-03] MEDS: AZITHROMYCIN 500MG/ 250ML 250 ML IV SCH (09:36)
[2021-08-03] MEDS: CARVEDILOL 3.125 MG TAB PO SCH (09:37)
[2021-08-03] MEDS: HYDROcodone-ACET 5/325MG TAB PO PRN (09:38)
[2021-08-03] MEDS ORDERED: CAR3125T PO (12:16)
[2021-08-03] MEDS ORDERED: ATOR20TA50 PO (12:16)
[2021-08-03] MEDS ORDERED: ERGO1CAP23 PO (12:16)
[2021-08-03] MEDS ORDERED: AMOX600S PO (12:20)
[2021-08-03 13:00] VITALS: BP 140/88
[2021-08-03 14:26] VITALS: BP 120/66
== END 2021-08-03 15:30 | disposition home or self-care (01) | DRG 871 ==
LOC: ER 14:06 → TELE 16:25 → TELE-CENTR 20:30
PROVIDERS: ADMIT Hospitalist; ATTEND Internal Medicine
DX: A41.9 Sepsis, unspecified organism (principal); I50.43 Acute on chronic combined systolic (congestive) and diastolic (congestive) heart failure; J18.9 Pneumonia, unspecified organism; J96.01 Acute respiratory failure with hypoxia; I33.0 Acute and subacute infective endocarditis; N17.9 Acute kidney failure, unspecified; N39.0 Urinary tract infection, site not specified; I13.0 Hypertensive heart and chronic kidney disease with heart failure and stage 1 through stage 4 chronic kidney disease, or unspecified chronic kidney disease; E11.22 Type 2 diabetes mellitus with diabetic chronic kidney disease; E11.40 Type 2 diabetes mellitus with diabetic neuropathy, unspecified; N18.2 Chronic kidney disease, stage 2 (mild); E11.65 Type 2 diabetes mellitus with hyperglycemia; E78.2 Mixed hyperlipidemia; Z20.822 Contact with and (suspected) exposure to COVID-19; E11.21 Type 2 diabetes mellitus with diabetic nephropathy; E87.5 Hyperkalemia; I25.10 Atherosclerotic heart disease of native coronary artery without angina pectoris; I25.5 Ischemic cardiomyopathy; I27.21 Secondary pulmonary arterial hypertension; R65.20 Severe sepsis without septic shock; I50.82 Biventricular heart failure; Z79.01 Long term (current) use of anticoagulants; Z79.84 Long term (current) use of oral hypoglycemic drugs; Z79.899 Other long term (current) drug therapy; Z83.3 Family history of diabetes mellitus; Z86.74 Personal history of sudden cardiac arrest; Z95.1 Presence of aortocoronary bypass graft; Z95.2 Presence of prosthetic heart valve; Z85.6 Personal history of leukemia; Z92.21 Personal history of antineoplastic chemotherapy; Z92.3 Personal history of irradiation
CPT/HCPCS: 36415; 71045; 71250; 80048; 80053; 80061; 80074; 80170; 80307; 81001; 82306; 82542; 82550; 82570; 82728; 82784; 82962; 83036; 83516; 83520; 83605; 83615; 83690; 83735; 83880; 83883; 84100; 84132; 84155; 84156; 84165; 84300; 84443; 84484; 84550; 85025; 85379; 85610; 85652; 85730; 86141; 86225; 86235; 86256; 86334; 86335; 86703; 87040; 87086; 87278; 87804; 93005; 93306; 93886; 94640; 96365; 96367; 96375; 99291; C9113; G0378; J0696; J1815; J2405; J3490; J7060

== ENCOUNTER 2021-11-07 03:13 | Emergency (ER) | payer BC ==
[~2021-11-07] VITALS: Ht 167.6 cm; Wt 65.0 kg
[~2021-11-07 03:13] MED LIST changes: +AMOX600S PO; +ATOR20TA50 PO; +CAR3125T PO; -DILT-14 PO; +ERGO1CAP23 PO
[2021-11-07 04:21] LABS: Basophils # (auto) 0.1 10 ^3/uL (0-0.2); Basophils % (auto) 1.2 % (0.0-2.0); Eosinophils # (auto) 0.3 10 ^3/uL (0-0.8); Eosinophils % (auto) 3.5 % (0.0-7.0); Hematocrit 40.1 % (41.0-53.0); Hemoglobin 12.7 g/dL (13.5-17.5); Lymphocytes # (auto) 2.4 10 ^3/uL (0.4-5.4); Lymphocytes % (auto) 24.8 % (10.0-50.0); Mean Corpuscular Hgb Conc. 31.6 g/dL (32.0-36.0); Mean Corpuscular Volume 95.1 fL (80.0-100.0); Monocytes # (auto) 0.6 10 ^3/uL (0-1.3); Monocytes % (auto) 6.5 % (0.0-12.0); Neutrophils # (auto) 6.2 10 ^3/uL (1.6-8.6); Nucleated Red Blood Cells % 0.1 %; Red Blood Cells 4.22 10^6/uL (4.5-5.90); Red Cell Distribution Width 18.9 % (11.8-14.3); White Blood Cell 9.7 10^3/uL (4.4-10.8)
[2021-11-07 04:44] LABS: Urine Bacteria NONE SEEN /hpf (None Seen); Urine Blood 3+ /uL (Negative); Urine Specific Gravity 1.013 (1.001-1.035); Urine WBC 21 /hpf (0 - 3)
[2021-11-07 04:58] LABS: INR 6.5 (0.9-1.15)
[2021-11-07 06:57] VITALS: BP 127/79
[2021-11-07] MEDS ORDERED: LIDOCAINE 1% HCL (LOCAL ANESTH.) INJ 20ML MDV IJ ONE (07:15)
[2021-11-07] MEDS ORDERED: cefTRIAXone SOD 1,000 MG VL IM ONE (07:15)
[2021-11-07] MEDS ORDERED: SULF400T11 PO (07:26)
== END 2021-11-07 07:51 | disposition home or self-care (01) ==
LOC: ER 03:13
DX: N39.0 Urinary tract infection, site not specified (principal); E11.22 Type 2 diabetes mellitus with diabetic chronic kidney disease; N18.9 Chronic kidney disease, unspecified; Z86.73 Personal history of transient ischemic attack (TIA), and cerebral infarction without residual deficits; Z79.899 Other long term (current) drug therapy
CPT/HCPCS: 36415; 81001; 85025; 85610; 96372; 99283; J0696; J2001